=== PATIENT | male | born 1990 | race Two or more races ===

== ENCOUNTER 2022-03-02 16:10 | Emergency (ER) | payer OTHER, SELFPAY ==
--- NOTE | ~2022-03-02 | XR_ITS ---
EXAMINATION: X-RAY RIGHT HAND X-RAY LEFT FOOT CLINICAL INFORMATION: Pain. History of IV drug use. COMPARISON: None. TECHNIQUE: 3 views of the right hand. 3 views of the left foot. FINDINGS: Right hand: There is soft tissue swelling with equivocal lucent lacerations involving the mid to distal second digit. No unexpected radiopaque foreign bodies are noted. There is a subacute to chronic appearing fracture of the fourth metacarpal bone with callus formation. Joint alignment is anatomic. Carpal rows are maintained. No erosive or destructive changes to suspect osteomyelitis.. Left foot: Diffuse soft tissue edema. No unexpected radiopaque foreign bodies. No acute fractures or malalignment. Mild joint space narrowing and subcortical sclerosis of the first metatarsophalangeal joint. No erosive or destructive changes to suspect osteomyelitis. XR/XR hand RT 2V IMPRESSION: RIGHT HAND: 1. Soft tissue swelling and equivocal lacerations involving the mid to distal second digit to correlate with physical examination. No unexpected radiopaque foreign bodies. 2. No acute fracture or malalignment. 3. Subacute to chronic appearing fracture of the fourth metacarpal bone. 4. No radiographic evidence of osteomyelitis at this time. LEFT FOOT: 1. Diffuse soft tissue swelling. No unexpected radiopaque foreign bodies. 2. No acute fracture or malalignment. 3. No radiographic evidence of osteomyelitis at this time. It is important to note that early osteomyelitis may be radiographically occult and therefore if clinical deemed appropriate an interval radiograph or correlation with an MR of the area of clinical concern could be obtained.
--- NOTE | ~2022-03-02 | XR_ITS ---
EXAMINATION: X-RAY RIGHT HAND X-RAY LEFT FOOT CLINICAL INFORMATION: Pain. History of IV drug use. COMPARISON: None. TECHNIQUE: 3 views of the right hand. 3 views of the left foot. FINDINGS: Right hand: There is soft tissue swelling with equivocal lucent lacerations involving the mid to distal second digit. No unexpected radiopaque foreign bodies are noted. There is a subacute to chronic appearing fracture of the fourth metacarpal bone with callus formation. Joint alignment is anatomic. Carpal rows are maintained. No erosive or destructive changes to suspect osteomyelitis.. Left foot: Diffuse soft tissue edema. No unexpected radiopaque foreign bodies. No acute fractures or malalignment. Mild joint space narrowing and subcortical sclerosis of the first metatarsophalangeal joint. No erosive or destructive changes to suspect osteomyelitis. XR/XR foot LT min 3V IMPRESSION: RIGHT HAND: 1. Soft tissue swelling and equivocal lacerations involving the mid to distal second digit to correlate with physical examination. No unexpected radiopaque foreign bodies. 2. No acute fracture or malalignment. 3. Subacute to chronic appearing fracture of the fourth metacarpal bone. 4. No radiographic evidence of osteomyelitis at this time. LEFT FOOT: 1. Diffuse soft tissue swelling. No unexpected radiopaque foreign bodies. 2. No acute fracture or malalignment. 3. No radiographic evidence of osteomyelitis at this time. It is important to note that early osteomyelitis may be radiographically occult and therefore if clinical deemed appropriate an interval radiograph or correlation with an MR of the area of clinical concern could be obtained.
--- NOTE | 2022-03-02 16:31 | ED.BURNSMOKE ---
HPI - Burn/Smoke Inhalation General Chief complaint: Skin/Abscess/Foreign Body Stated complaint: burn on finger and swollen feet Time Seen by Provider: 03/02/22 18:54 Related Data Previous Rx's Medication Instructions Recorded cephalexin 500 mg capsule 500 mg PO BID 7 days #14 caps 03/02/22 Allergies Allergy/AdvReac Type Severity Reaction Status Date / Time No Known Allergies Allergy Verified 03/02/22 16:40 PMFSH Social History Social History Advance Directives: No Advance Directives Information Provided: No Physical Exam Vital Signs: Vital Signs: Last Vital Signs Temp 98.2 F 03/02/22 19:51 Pulse 64 03/02/22 19:51 Resp 16 03/02/22 19:51 BP 123/57 L 03/02/22 19:51 Pulse Ox 98 03/02/22 19:51 O2 Del Method 03/02/22 19:51 BMI result Body Mass Index 18.8 Course Course Course Narrative: RME: Patient is a 31-year-old male presents to the emergency department for evaluation of a burn to the finger. Reports Right hand second digit, burned it on a hot pipe 4 days ago, then a blister developed that opened 2 days ago. The area is painful. Denies fevers, chills, chest pain, shortness of breath. Also complaining of left foot pain, swelling, redness without any precipitating injury. He does endorse injecting heroin. PE: Right hand 2nd digit palmar aspect partial-thickness burn purulent drainage pink moist tissue and eschar, inable to flex DIP. Left foot 2+DP.PT pulse, erythematous, warm, swelling Plan: CBC, CMP, lactic acid, blood cultures, XR hand and XR foot Medications Administered Discontinued Medications Generic Name Dose Route Start Last Admin Trade Name Cj PRN Reason Stop Dose Admin Silver Sulfadiazine 1 appl 03/02/22 19:22 03/02/22 19:26 Silver Sulfadiazine 1 % Cream 20 Gm Tube TOPICAL 03/02/22 19:23 1 appl ONCE ONE Administration MDM - Burn/Smoke Inhalation Lab Data Result diagrams: 03/02/22 17:43 03/02/22 17:43 Labs: Lab Results 03/02/22 03/02/22 03/02/22 Range/Units 17:43 17:43 17:43 WBC 8.6 (4.8-10.8) X10*3/uL RBC 4.03 L (4.60-5.80) X10*6/uL Hgb 12.0 L (14.0-18.0) g/dl Hct 36.3 L (42.0-52.0) % MCV 90.1 (80.0-98.0) fL MCH 29.8 (27.0-33.0) pg MCHC 33.1 (31.0-36.0) g/dl RDW 12.4 (11.0-16.0) % Plt Count 332 (160-400) X10*3/uL MPV 9.2 L (9.4-12.4) fL Immature Gran % (Auto) 0.4 (0.0-0.4) % Neut % (Auto) 68.0 (45-73) % Lymph % (Auto) 23.8 (20-40) % [place] % (Auto) 6.1 (2-11) % Eos % (Auto) 1.3 (0-4) % Baso % (Auto) 0.4 (0-2) % Lymph # (Auto) 2.0 (1.2-4.9) X10*3/uL [place] # (Auto) 0.5 (0.1-1.2) X10*3/uL Eos # (Auto) 0.1 (0.0-0.4) X10*3/uL Baso # (Auto) 0.0 (0.0-0.2) X10*3/uL Abs Immat Gran (auto) 0.03 (0.00-0.03) X10*3/uL Absolute Neuts (auto) 5.8 (2.0-8.3) x10*3/uL Absolute Nucleated RBC 0.000 (0.0-0.012) X10*3/uL Nucleated RBC % (auto) 0.0 (0.0-0.2) /100WBC Sodium 137 (135-145) mmol/L Potassium 4.5 (3.3-5.1) mmol/L Chloride 101 (96-108) mmol/L Carbon Dioxide 27 (22-29) mmol/L Anion Gap 14 (12-20) BUN 10 (9-16) mg/dL Creatinine 0.66 (0.5-1.4) mg/dL Estim Creat Clear Calc 125.9 Estimated GFR > 60 Random Glucose 87 (60-115) mg/dL Lactic Acid 0.7 (0.5-2.0) mmol/L Calcium 9.1 (8.4-10.2) mg/dL Total Bilirubin 0.3 (0.0-1.0) mg/dL AST 46 H (5-37) U/L ALT 53 H (0-40) U/L Alkaline Phosphatase 52 (39-117) U/L Total Protein 7.5 (6.5-8.0) g/dL Albumin 3.8 (3.5-5.0) g/dL Discharge Plan Discharge Clinical Impression: Cellulitis, Second degree burn injury Patient Disposition: Home, Self-Care Instructions: Cellulitis (ED), Second Degree Burn (ED) Prescriptions: New cephalexin 500 mg capsule 500 mg PO BID 7 Days Qty: 14 0RF Interventions: ED Discharge Assessment Last Done: 03/02/22 20:27 Discharge Date/Time: 03/02/22 20:26
[2022-03-02 16:32] VITALS: BP 123/66; PULSE 99; RESP 18; TEMP 36.6; O2SAT 99; BMI 18.8
[2022-03-02 17:48] LABS: MANUAL DIFF FLAG NO
[2022-03-02 17:50] LABS: Basophils Percent Auto 0.4 % (0-2); Eosinophils Absolute Auto 0.1 X10*3/uL (0.0-0.4); Eosinophils Percent Auto 1.3 % (0-4); Hematocrit 36.3 % (42.0-52.0); Imm Gran Abs Auto 0.03 X10*3/uL (0.00-0.03); Imm Gran Pct Auto 0.4 % (0.0-0.4); Lymphocytes Percent Auto 23.8 % (20-40); Mean Corpuscular HGB Conc 33.1 g/dl (31.0-36.0); Mean Corpuscular Hemoglobin 29.8 pg (27.0-33.0); Mean Corpuscular Volume 90.1 fL (80.0-98.0); Mean Platelet Volume 9.2 fL (9.4-12.4); Monocytes Absolute Auto 0.5 X10*3/uL (0.1-1.2); Monocytes Percent Auto 6.1 % (2-11); Neutrophils Absolute Auto 5.8 x10*3/uL (2.0-8.3); Platelet Count 332 X10*3/uL (160-400); Red Blood Count 4.03 X10*6/uL (4.60-5.80); Red Cell Distribution Width 12.4 % (11.0-16.0); White Blood Count 8.6 X10*3/uL (4.8-10.8)
[2022-03-02 18:05] LABS: Lactic Acid 0.7 mmol/L (0.5-2.0)
[2022-03-02 18:09] LABS: Alanine Aminotransferase 53 U/L (0-40); Albumin Level 3.8 g/dL (3.5-5.0); Alkaline Phosphatase 52 U/L (39-117); Anion Gap 14 (12-20); Aspartate Amino Transferase 46 U/L (5-37); Bilirubin Total 0.3 mg/dL (0.0-1.0); Blood Urea Nitrogen 10 mg/dL (9-16); Calcium 9.1 mg/dL (8.4-10.2); Carbon Dioxide 27 mmol/L (22-29); Chloride 101 mmol/L (96-108); Creatinine Clr Calc Pharmacy 125.9; Estimated Glomerular Filt Rate > 60; Glucose Random 87 mg/dL (60-115); Potassium 4.5 mmol/L (3.3-5.1); Sodium 137 mmol/L (135-145); Total Protein 7.5 g/dL (6.5-8.0)
--- NOTE | 2022-03-02 19:09 | ED_ITS ---
HPI - Skin/Abscess/Foreign Bdy General Chief complaint: Skin/Abscess/Foreign Body Stated complaint: burn on finger and swollen feet Time Seen by Provider: 03/02/22 18:54 Source: patient Limitations: language barrier History of Present Illness HPI narrative: 31-year-old male with past medical history of intravenous drug abuse presents the emergency department today complaining of swelling of the left foot. The patient states this started a couple days ago, it seems better today, but was probably incited by a IV drug use. The patient denies any fevers or shaking chills. There is pain which is [id number]. There has been no discharge. The patient also complains of a burn on the right index finger which occurred when he held a hot cocaine pipe several days ago. MD complaint: discoloration Onset (ago): day(s) Tetanus up to date: unsure Location: L foot Severity: moderate Quality: burning Related Data Previous Rx's Medication Instructions Recorded cephalexin 500 mg capsule 500 mg PO BID 7 days #14 caps 03/02/22 Allergies Allergy/AdvReac Type Severity Reaction Status Date / Time No Known Allergies Allergy Verified 03/02/22 16:40 Review of Systems Constitutional: Constitutional: Denies chills and Denies fever(s) ENT: Denies dizziness Cardiovascular: Cardiovascular: Denies chest pain and Denies dyspnea Respiratory: Respiratory: Denies dyspnea Musculoskeletal: Musculoskeletal: Denies back pain, Denies joint swelling, Denies numbness and Denies tingling Integumentary/Breasts: Skin/Breast: Reports erythema, Reports rash and Reports skin pain Neurologic: Denies dizziness, Denies numbness and Denies tingling [facility] Past Medical History Attestation statement: The following information was validated with the patient. [facility] Narrative: Patient is an IV drug user. No other significant medical problems Social History Social History Advance Directives: No Advance Directives Information Provided: No Physical Exam Vital Signs: Vital Signs: Last Vital Signs Temp 98.2 F 03/02/22 19:51 Pulse 64 03/02/22 19:51 Resp 16 03/02/22 19:51 BP 123/57 L 03/02/22 19:51 Pulse Ox 98 03/02/22 19:51 O2 Del Method 03/02/22 19:51 BMI result Body Mass Index 18.8 Vital signs as noted. Const: General: cooperative and no acute distress Orientation/consciousness: patient oriented x3 Cardio: Rate: regular rate Rhythm: regular rhythm Heart sounds: no murmurs Skin: General skin exam: erythema Neuro: General: patient oriented x3 Cranial nerves: Yes CN's II-XII intact bilaterally Extrem: General: No cyanosis and Yes edema Left lower extremity: edema Ankle/foot/toe images: 1. Redness noted with some mild swelling Medications Administered Discontinued Medications Generic Name Dose Route Start Last Admin Trade Name jC PRN Reason Stop Dose Admin Silver Sulfadiazine 1 appl 03/02/22 19:22 03/02/22 19:26 Silver Sulfadiazine 1 % Cream 20 Gm Tube TOPICAL 03/02/22 19:23 1 appl ONCE ONE Administration MDM - Skin/Abscess/Foreign Bdy MDM Narrative Medical decision making narrative: 31-year-old male with a past medical history of IVDA presenting with a burn on his right index finger as well as some swelling and redness of his left foot. Laboratory studies were unremarkable. The patient had x-ray of the foot which was normal. A dressing was applied to the finger, and the patient will be discharged home on antibiotics for what appears to be a mild cellulitis of the right foot. He denies shooting any drugs into that foot, but it is slightly warm, red and swollen. Medical Records Attestation: I reviewed the patient's medical records. Lab Data Attestation: I reviewed the patient's lab results. Lab results narrative: Labs are normal Result diagrams: 03/02/22 17:43 03/02/22 17:43 Labs: Lab Results 03/02/22 03/02/22 03/02/22 Range/Units 17:43 17:43 17:43 WBC 8.6 (4.8-10.8) X10*3/uL RBC 4.03 L (4.60-5.80) X10*6/uL Hgb 12.0 L (14.0-18.0) g/dl Hct 36.3 L (42.0-52.0) % MCV 90.1 (80.0-98.0) fL MCH 29.8 (27.0-33.0) pg MCHC 33.1 (31.0-36.0) g/dl RDW 12.4 (11.0-16.0) % Plt Count 332 (160-400) X10*3/uL MPV 9.2 L (9.4-12.4) fL Immature Gran % (Auto) 0.4 (0.0-0.4) % Neut % (Auto) 68.0 (45-73) % Lymph % (Auto) 23.8 (20-40) % [place] % (Auto) 6.1 (2-11) % Eos % (Auto) 1.3 (0-4) % Baso % (Auto) 0.4 (0-2) % Lymph # (Auto) 2.0 (1.2-4.9) X10*3/uL [place] # (Auto) 0.5 (0.1-1.2) X10*3/uL Eos # (Auto) 0.1 (0.0-0.4) X10*3/uL Baso # (Auto) 0.0 (0.0-0.2) X10*3/uL Abs Immat Gran (auto) 0.03 (0.00-0.03) X10*3/uL Absolute Neuts (auto) 5.8 (2.0-8.3) x10*3/uL Absolute Nucleated RBC 0.000 (0.0-0.012) X10*3/uL Nucleated RBC % (auto) 0.0 (0.0-0.2) /100WBC Sodium 137 (135-145) mmol/L Potassium 4.5 (3.3-5.1) mmol/L Chloride 101 (96-108) mmol/L Carbon Dioxide 27 (22-29) mmol/L Anion Gap 14 (12-20) BUN 10 (9-16) mg/dL Creatinine 0.66 (0.5-1.4) mg/dL Estim Creat Clear Calc 125.9 Estimated GFR > 60 Random Glucose 87 (60-115) mg/dL Lactic Acid 0.7 (0.5-2.0) mmol/L Calcium 9.1 (8.4-10.2) mg/dL Total Bilirubin 0.3 (0.0-1.0) mg/dL AST 46 H (5-37) U/L ALT 53 H (0-40) U/L Alkaline Phosphatase 52 (39-117) U/L Total Protein 7.5 (6.5-8.0) g/dL Albumin 3.8 (3.5-5.0) g/dL Imaging Data Left foot: Radiologist's impression: No acute fracture or evidence of abscess or osteomyelitis Discharge Plan Discharge Clinical Impression: Cellulitis, Second degree burn injury Patient Disposition: Home, Self-Care Instructions: Cellulitis (ED), Second Degree Burn (ED) Prescriptions: New cephalexin 500 mg capsule 500 mg PO BID 7 Days Qty: 14 0RF
[2022-03-02] MEDS: Silver Sulfadiazine 1 % Cream 20 GM TUBE 1 APPL TOPICAL (19:26)
[2022-03-02 19:51] VITALS: BP 123/57; PULSE 64; RESP 16; TEMP 36.8; O2SAT 98
--- NOTE | 2022-03-02 20:25 | PC.NURSE ---
care of patient assumed to discharge pt
--- NOTE | 2022-03-02 20:26 | PC.NURSE ---
Discharge instructions given and explaine to pt. Pt ambulates safely and independently. No apparent distress.
== END 2022-03-02 20:26 | disposition home or self-care (01) ==
PROVIDERS: Nurse Practitioner Family; Emergency Provider Emergency Medicine
DX: L03.115 Cellulitis of right lower limb (principal); T23.221A Burn of second degree of single right finger (nail) except thumb, initial encounter; T31.0 Burns involving less than 10% of body surface; X08.8XXA Exposure to other specified smoke, fire and flames, initial encounter; F19.10 Other psychoactive substance abuse, uncomplicated
CPT/HCPCS: 16020; 36415; 73120; 73630; 80053; 83605; 85025; 99283